=== PATIENT | male | born 1990 | race Caucasian/White ===

== ENCOUNTER 2016-04-28 18:12 | Emergency (ER) | payer SELFPAY ==
[~2016-04-28] VITALS: Ht 177.8 cm; Wt 88.8 kg
[2016-04-28 19:05] LABS: HEMATOCRIT 44.8 % (38.0-50.0); MCH 31.9 PG (29.0-34.0); MCHC 33.7 G/DL (30.0-36.0); MCV 94.5 FL (86-99); MEAN PLAT.VOLUME 10.2 uM^3 (9.0-12.4); PLATELET COUNT 217 K/uL (156-360); RBC DIS.WIDTH-CV 12.3 % (11.8-14.6); RBC DIS.WIDTH-SD 41.2 % (39-53); RED BLOOD COUNT 4.74 M/uL (4.00-5.50); WHITE BLOOD COUNT 7.8 K/uL (4.1-10.2)
[2016-04-28 19:18] LABS: CHLORIDE 104 mEq/L (99-109); POTASSIUM 4.2 mEq/L (3.7-5.4); SODIUM 143 mEq/L (136-147)
[2016-04-28 19:20] LABS: GLUCOSE 90 mg/dL (70-99)
[2016-04-28 19:21] LABS: ANION GAP 10 MEQ/L (2-14)
[2016-04-28 19:22] LABS: TOTAL BILIRUBIN 0.2 mg/dL (0.0-1.0)
[2016-04-28 19:24] LABS: ALKALINE PHOSPHATASE 56 IU/L (3-129); GFR ESTIMATE (CALCULATED) > 59 mL/min/
[2016-04-28 19:25] LABS: UREA NITROGEN (BUN) 14 mg/dL (9-23)
[2016-04-28 19:30] LABS: TROP-I INTERPRETATION NEGATIVE; TROPONIN-I < 0.01 ng/mL (0.0-0.30)
[2016-04-28 21:26] LABS: TROP-I INTERPRETATION NEGATIVE; TROPONIN-I < 0.01 ng/mL (0.0-0.30)
[2016-04-28 21:57] VITALS: BP 116/65
== END 2016-04-28 21:58 | disposition home or self-care (01) ==
LOC: EME 18:12
PROVIDERS: Nurse Practitioner Family
DX: R07.9 Chest pain, unspecified (principal); F17.200 Nicotine dependence, unspecified, uncomplicated
CPT/HCPCS: 71020; 80053; 84484; 85027; 93005; 99281; 99284